=== PATIENT | male | born 1980 | race Caucasian/White ===

== ENCOUNTER 2016-10-07 14:42 | Emergency (ER) | payer SELFPAY ==
[~2016-10-07] VITALS: Ht 175.3 cm; Wt 140.9 kg
[2016-10-07] MEDS ORDERED: BACTRIM DS TAB1 EACH PO (15:26)
[2016-10-07 15:36] VITALS: BP 166/88
== END 2016-10-07 15:37 | disposition home or self-care (01) ==
LOC: ED 14:42
DX: L03.211 Cellulitis of face (principal)

== ENCOUNTER 2019-04-18 18:17 | Emergency (ER) | payer SELFPAY ==
[~2019-04-18] VITALS: Wt 153.3 kg
[~2019-04-18 18:17] MED LIST: BACTRIM DS TAB1 EACH PO
[2019-04-18] MEDS ORDERED: HCTZ 25MG25 MG PO (18:27)
[2019-04-18 19:18] LABS: EOS # 0.1 (0.04-0.40); EOS % 1.7 % (0.0-4.0); HEMATOCRIT 45.3 % (42.0-52.0); HEMOGLOBIN 15.2 g/dL (13.5-18.0); LYMPH# 2.1 (1.50-4.00); MEAN CELL VOLUME 87 fl (78-100); MEAN CORPUSCULAR HEMOGLOBIN 29 pg (27-31); MEAN CORPUSCULAR HGB CONC 34 g/dL (33-37); MONO # 0.8 (0.20-0.80); NEU # 5.2 (1.40-6.50); PLATELET COUNT 158 K/mm3 (130-400); RED BLOOD COUNT 5.23 M/mm3 (4.20-5.60); RED CELL DISTRIBUTION WIDTH 14.3 % (11.5-14.5); WHITE BLOOD COUNT 8.2 K/mm3 (4.8-10.8)
[2019-04-18 19:21] LABS: MEAN PLATELET VOLUME 12.6 fl (7.4-10.4)
[2019-04-18 19:25] LABS: ALBUMIN 4.1 g/dL (3.5-5.0); POTASSIUM 3.2 mmol/L (3.5-5.1)
[2019-04-18 19:26] LABS: CALCIUM 9.3 mg/dL (8.3-10.5)
[2019-04-18 19:27] LABS: TOTAL PROTEIN 7.2 g/dL (6.4-8.3)
[2019-04-18 19:29] LABS: TOTAL BILIRUBIN 0.4 mg/dL (0.2-1.2)
[2019-04-18 19:41] LABS: URINE APPEARANCE CLEAR; URINE BILIRUBIN NEGATIVE (NEGATIVE); URINE COLOR YELLOW; URINE GLUCOSE NEGATIVE (NEGATIVE); URINE KETONE NEGATIVE (NEGATIVE); URINE PROTEIN(semi-quant) TRACE mg/dL (NEGATIVE); URINE UROBILINOGEN NORMAL (NORMAL)
[2019-04-18 19:42] LABS: URINE BLOOD NEGATIVE (NEGATIVE); URINE LEUKOCYTE ESTERASE TRACE (NEGATIVE); URINE NITRATE NEGATIVE (NEGATIVE)
[2019-04-18 19:43] LABS: URINE MUCUS PRESENT (NOT PRESENT)
[2019-04-18 20:36] VITALS: BP 140/85
== END 2019-04-18 20:36 | disposition home or self-care (01) ==
LOC: ED 18:17
PROVIDERS: Family Medicine
DX: R10.9 Unspecified abdominal pain (principal); E11.9 Type 2 diabetes mellitus without complications; I10 Essential (primary) hypertension; Z98.890 Other specified postprocedural states

== ENCOUNTER 2023-05-16 12:35 | Emergency (ER) | payer SELFPAY ==
[~2023-05-16] VITALS: Ht 175.3 cm; Wt 159.1 kg
[~2023-05-16 12:35] MED LIST changes: +HCTZ 25MG25 MG PO
[2023-05-16] MEDS ORDERED: ZESTORETIC 20-1 EACH (13:14)
[2023-05-16 13:44] LABS: SODIUM 139 mmol/L (136-145)
[2023-05-16 13:45] LABS: ALBUMIN 4.3 g/dL (3.5-5.0)
[2023-05-16 13:46] LABS: CALCIUM 9.4 mg/dL (8.3-10.5)
[2023-05-16 13:48] LABS: CARBON DIOXIDE 23 mmol/L (22-29); GLUCOSE 116 mg/dL (75-110); TOTAL PROTEIN 7.4 g/dL (6.4-8.3)
[2023-05-16 13:49] LABS: TOTAL BILIRUBIN 0.6 mg/dL (0.2-1.2)
[2023-05-16 13:51] LABS: BASO # 0.02 K/mm3 (0.02-0.10); EOS # 0.06 K/mm3 (0.04-0.40); EOS % 0.8 % (0.0-4.0); HEMATOCRIT 45.8 % (42.0-52.0); HEMOGLOBIN 14.9 g/dL (13.5-18.0); LYMPH# 1.35 K/mm3 (1.50-4.00); MEAN CELL VOLUME 88 fl (78-100); MEAN CORPUSCULAR HEMOGLOBIN 29 pg (27-31); MEAN CORPUSCULAR HGB CONC 33 g/dL (33-37); MEAN PLATELET VOLUME 12.2 fl (7.4-10.4); MONO # 0.48 K/mm3 (0.20-0.80); PLATELET COUNT 170 K/mm3 (130-400); RED BLOOD COUNT 5.23 M/mm3 (4.20-5.60); RED CELL DISTRIBUTION WIDTH 14.3 % (11.5-14.5); WHITE BLOOD COUNT 7.3 K/mm3 (4.8-10.8)
[2023-05-16 13:52] LABS: AST-SGOT 22 U/L (5-34)
[2023-05-16 13:55] LABS: ALT/SGPT 48 U/L (0-55)
[2023-05-16 14:02] LABS: TROPONIN-I < 0.030 ng/mL (0.00-0.033)
[2023-05-16 14:15] LABS: D-DIMER 0.17 mg/L FEU (0.15-0.50)
[2023-05-16] MEDS ORDERED: XANAX 1MG1 MG PO (14:53)
[2023-05-16 15:57] VITALS: BP 145/81
== END 2023-05-16 15:45 | disposition home or self-care (01) ==
LOC: ED 12:35
PROVIDERS: Nurse Practitioner Family
DX: I21.9 Acute myocardial infarction, unspecified (principal); I50.9 Heart failure, unspecified; I26.99 Other pulmonary embolism without acute cor pulmonale; F41.9 Anxiety disorder, unspecified

== ENCOUNTER → 2023-07-24 | Outpatient (CLI) | payer MEDICAID ==
[~2023-07-24] MED LIST changes: +XANAX 1MG1 MG PO; +ZESTORETIC 20-1 EACH
[2023-07-24 12:20] LABS: BASO # 0.01 K/mm3 (0.02-0.10); EOS # 0.13 K/mm3 (0.04-0.40); HEMATOCRIT 47.2 % (42.0-52.0); HEMOGLOBIN 15.3 g/dL (13.5-18.0); LYMPH# 1.67 K/mm3 (1.50-4.00); MEAN CELL VOLUME 88 fl (78-100); MEAN CORPUSCULAR HEMOGLOBIN 29 pg (27-31); MEAN CORPUSCULAR HGB CONC 32 g/dL (33-37); MEAN PLATELET VOLUME 12.5 fl (7.4-10.4); MONO # 0.45 K/mm3 (0.20-0.80); NEU # 4.14 K/mm3 (1.40-6.50); PLATELET COUNT 172 K/mm3 (130-400); RED BLOOD COUNT 5.36 M/mm3 (4.20-5.60); RED CELL DISTRIBUTION WIDTH 13.9 % (11.5-14.5); WHITE BLOOD COUNT 6.4 K/mm3 (4.8-10.8)
[2023-07-24 12:35] LABS: ALBUMIN 4.2 g/dL (3.5-5.0)
[2023-07-24 12:36] LABS: CALCIUM 9.7 mg/dL (8.3-10.5)
[2023-07-24 12:37] LABS: TOTAL PROTEIN 7.3 g/dL (6.4-8.3)
[2023-07-24 12:39] LABS: TOTAL BILIRUBIN 0.6 mg/dL (0.2-1.2)
== END ==
LOC: LAB 12:02
PROVIDERS: Nurse Practitioner
DX: Z00.00 Encounter for general adult medical examination without abnormal findings (principal); G25.2 Other specified forms of tremor

== ENCOUNTER → 2023-10-07 | Outpatient (CLI) | payer OTHER | LOC: RAD 09:40 | DX: M17.12 Unilateral primary osteoarthritis, left knee (principal) ==